=== PATIENT | female | born 1990 | race Caucasian/White ===

== ENCOUNTER 2021-02-16 09:50 | Emergency (ER) | payer OTHER ==
[~2021-02-16] VITALS: Ht 165.1 cm; Wt 73.5 kg
[2021-02-16 09:56] VITALS: BP 113/68
--- NOTE | 2021-02-16 10:02 | NUR ---
30YO F BIB SELF FOR C/O LEFT ACHILES TENDON PAIN X 3 DAYS. PAIN 5/10, SHARP NON-RADIATING, AGGRAVATED BY WALKING. PT WENT TO AN AMUSEMENT PARK 3 DAYS AGO WHEN THE PAIN STARTED. 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 PT APPLIED ICE COMPRESS WHICH PROVIDED MILD RELIEF. NO MEDICATIONS TAKEN. lEFT BACK OF HEEL APPEARS SWOLLEN ,REDDENED, AND TENDER TO TOUCH.pT ABLE TO AMBULATE STEADILY WITHOUT ASSISTANCE. PMH: DENIES MEDS: DENIES ALLERGY: PENICILLIN
[2021-02-16] MEDS ORDERED: KETOROLAC 30 MG/ML VIAL IM ONE (10:15)
--- NOTE | 2021-02-16 10:22 | NUR ---
RADIOLOGY AT BEDSIDE TAKING XRAY
[2021-02-16] MEDS ORDERED: IBUP-2213 PO (10:54)
[2021-02-16] MEDS ORDERED: SULF-59 PO (10:54)
[2021-02-16] MEDS ORDERED: CEPH-588 PO (10:54)
--- NOTE | 2021-02-16 11:04 | NUR ---
DR BOLIVAR AT BEDSIDE TO EXPLAIN RESULTS AND D/C DETAILS
--- NOTE | 2021-02-16 11:24 | NUR ---
Patient discharged with v/s stable. Written and verbal after care instructions given and explained. Patient alert, oriented and verbalized understanding of instructions. Ambulatory WITH CRUTCHES with steady gait. All questions addressed prior to discharge. ID band removed. Patient advised to follow up with PMD. Rx of KEFLEX, IBRUPROFEN, BACTRIM DS TABLET given.Opportunity to ask questions provided and answered.
--- NOTE | 2021-02-16 11:25 | NUR ---
The patient's care was reviewed and supervised by Rosie Godwin, RN, RN.
== END 2021-02-16 11:21 | disposition home or self-care (01) ==
LOC: MED 09:50
DX: M76.62 Achilles tendinitis, left leg (principal); L03.116 Cellulitis of left lower limb; Z79.899 Other long term (current) drug therapy; Z88.0 Allergy status to penicillin; X58.XXXA Exposure to other specified factors, initial encounter; Y93.01 Activity, walking, marching and hiking; Y92.830 Public park as the place of occurrence of the external cause; Y99.8 Other external cause status
CPT/HCPCS: 73610; 81025; 96372; 99283; J1885